=== PATIENT | female | born 1955 | race Two or more races ===

== ENCOUNTER 2023-12-14 13:45 | Emergency (ER) | payer OTHER ==
[~2023-12-14] VITALS: Ht 160 cm; Wt 64.4 kg
== END 2023-12-14 21:03 | disposition home or self-care (01) ==
LOC: ER 13:46
DX: M54.42 Lumbago with sciatica, left side (principal)

== ENCOUNTER 2024-10-19 12:47 | Emergency (ER) | payer OTHER ==
[~2024-10-19] VITALS: Ht 160 cm; Wt 57.6 kg
[2024-10-19] MEDS ORDERED: KETOROLAC TROMETHAMINE 30 MG VIAL IM STA (17:49)
[2024-10-19] MEDS ORDERED: ORPHENADRINE CITRATE 30 MG/ML AMPUL IM STA (17:49)
[2024-10-19 18:17] LABS: HEMOGLOBIN 12.2 g/dL (12.0-15.00); MEAN CELL VOLUME 82.5 fL (80.00-100.00); MEAN CORPUSCULAR HGB CONC 33.9 g/dl (32.0-36.0); PLATELET COUNT 281 K/uL (150-450); RED BLOOD COUNT 4.37 M/uL (4.00-6.00); RED CELL DISTRIBUTION WIDTH 16.5 % (11.5-14.5)
[2024-10-19 18:47] LABS: ALBUMIN 3.4 gm/dL (3.4-5.0); BILIRUBIN TOTAL 0.6 mg/dL (0.3-1.2); CALCIUM 9.6 mg/dL (8.5-10.1); CREATININE SERUM 0.76 mg/dL (0.55-1.02); GFR 76.37; POTASSIUM 3.74 mEq/L (3.5-5.1); TOTAL PROTEIN 8.4 gm/dL (6.4-8.2)
[2024-10-19] MEDS ORDERED: OMEPRAZOLE20 MG PO (21:38)
[2024-10-19] MEDS ORDERED: METRONIDAZOLE500 MG PO (21:38)
[2024-10-19] MEDS ORDERED: CIPRO500 MG PO (21:38)
[2024-10-19] MEDS ORDERED: PEPCID AC20 MG PO (21:38)
== END 2024-10-19 22:06 | disposition home or self-care (01) ==
LOC: ER 12:47
PROVIDERS: General Practice
DX: K52.9 Noninfective gastroenteritis and colitis, unspecified (principal)

== ENCOUNTER 2024-11-05 07:54 | Outpatient (CLI) | payer OTHER ==
[~2024-11-05 07:54] MED LIST: CIPRO500 MG PO; METRONIDAZOLE500 MG PO; OMEPRAZOLE20 MG PO; PEPCID AC20 MG PO
== END 2024-11-05 08:00 | disposition home or self-care (01) ==
LOC: MAMO-SONO 07:54
PROVIDERS: ATTEND General Practice
DX: N64.2 Atrophy of breast (principal); D48.7 Neoplasm of uncertain behavior of other specified sites

== ENCOUNTER 2024-12-19 13:11 | Emergency (ER) | payer OTHER ==
[~2024-12-19] VITALS: Ht 162.6 cm; Wt 57.2 kg
[2024-12-19] MEDS ORDERED: KETOROLAC TROMETHAMINE 30 MG VIAL IM STA (14:39)
[2024-12-19] MEDS ORDERED: ORPHENADRINE CITRATE 30 MG/ML AMPUL IM STA (14:40)
[2024-12-19] MEDS ORDERED: KETOROLAC TROMETHAMINE 30 MG VIAL ONE (14:43)
[2024-12-19] MEDS ORDERED: ORPHENADRINE CITRATE 30 MG/ML AMPUL ONE (14:44)
== END 2024-12-19 14:50 | disposition home or self-care (01) ==
LOC: ER 13:11
DX: M54.50 Low back pain, unspecified (principal)

== ENCOUNTER 2025-01-05 07:30 | Outpatient (CLI) | payer OTHER | END 2025-01-05 07:31 | disposition home or self-care (01) | LOC: NUCLEAR 07:30 | PROVIDERS: ATTEND General Practice | DX: C41.9 Malignant neoplasm of bone and articular cartilage, unspecified (principal) ==

== ENCOUNTER 2025-10-28 08:30 | Outpatient (CLI) | payer OTHER | END 2025-10-28 08:31 | disposition home or self-care (01) | LOC: NUCLEAR 08:30 | PROVIDERS: ATTEND Internal Medicine Hematology & Oncology | DX: C50.911 Malignant neoplasm of unspecified site of right female breast (principal); C79.51 Secondary malignant neoplasm of bone; C78.7 Secondary malignant neoplasm of liver and intrahepatic bile duct ==